=== PATIENT | male | born 1985 | race Caucasian/White ===

== ENCOUNTER → 2019-06-27 | Day surgery (SDC) | payer BC ==
[2019-06-26 12:23] LABS: BASOPHILS % 0.5 % (0.0-1.0); EOSINOPHILS # (AUTO) 0.1 (0.0-0.4); EOSINOPHILS % 1.2 % (0.0-6.0); HEMATOCRIT 41.1 % (38.2-49.6); HEMOGLOBIN 13.8 g/dL (14.0-18.0); LYMPHOCYTES # (AUTO) 2.1 (1.0-3.2); MEAN CORPUSCULAR HEMOGLOBIN 30.6 pg (28-32); MEAN CORPUSCULAR HGB CONC 33.6 g/dL (31-35); MEAN CORPUSCULAR VOLUME 91.1 fL (81-99); MONOCYTES # (AUTO) 0.5 (0.2-0.8); MONOCYTES % 5.6 % (4.4-11.3); NEUTROPHILS # (AUTO) 5.4 (2.1-6.9); NEUTROPHILS % 66.3 % (38.7-80.0); PLATELET COUNT 234 x10e3/uL (140-360); RED BLOOD COUNT 4.51 x10e6/uL (4.3-5.7); RED CELL DISTRIBUTION WIDTH 12.7 % (11.7-14.4)
[2019-06-26 12:34] LABS: PROTHROMBIN TIME 13.7 seconds (11.9-14.5)
[2019-06-26 12:40] LABS: ALANINE AMINOTRANSFERASE 25 IU/L (0-55); ALBUMIN 4.3 g/dL (3.5-5.0); ALBUMIN/GLOBULIN RATIO 1.5 (0.8-2.0); ALKALINE PHOSPHATASE 63 IU/L (40-150); BLOOD UREA NITROGEN 14 mg/dL (7-26); BUN/CREATININE RATIO 11 (6-25); CALCIUM 9.7 mg/dL (8.4-10.2); CARBON DIOXIDE 29 mmol/L (22-29); CHLORIDE 103 mmol/L (98-107); CREATININE, SERUM 1.25 mg/dL (0.72-1.25); EST GLOMERULAR FILTRATION RATE > 60 ML/MIN (60-); GLUCOSE 139 mg/dL (74-118); SODIUM 139 mmol/L (136-145)
[~2019-06-27] VITALS: Ht 175.3 cm; Wt 81.6 kg
[~2019-06-27] MED LIST: ACETAMINOPHEN325 M1 PO; ADVIL200 MG PO; LIDOCAINE 1% W/EPINEPHRINE 20 ML VIAL ONE
[2019-06-27 09:30] VITALS: BP 117/60
--- NOTE | 2019-06-27 09:30 | NUR ---
0930Pt meets DC criteria. Chest assessed for s/s of complication and presence of hematoma. Skin warm, dry, no discolor, and pulses present. Programed ILR verified by Laurel MAYBERRY Synced device at nursing station and prepared for dc. VS WNL. Pt denies pain, sob, or need at this time. Review of discharge paperwork and follow up instructions. verbalized understanding. Pt to wheelchair and transported to front of hospital. Transferred to private vehicle under own strength w/o incident with DC paperwork in hand. - ds/rn ---------
--- NOTE | 2019-08-06 16:52 | Operative Report ---
DATE OF PROCEDURE: 06/27/2019 SURGEON: Catracho Mcbride MD INDICATION FOR PROCEDURE: SVT. PROCEDURES PERFORMED: LINQ ILR implantation. PREPROCEDURE ASSESSMENT: Informed consent was obtained. Risks, benefits, and alternatives to treatment were explained prior to the procedure. PROCEDURE PERFORMED: LINQ ILR implantation. PROCEDURE DETAILS: The patient was brought to the cardiac catheterization holding area in a fasting state. Chest was prepped and draped in a sterile fashion and local anesthesia was achieved for fourth intercostal space using 1% lidocaine with epinephrine. LINQ implantable loop recorder device was inserted in the fourth space without any complication. Incision was closed using Dermabond with overlying dressing. The patient tolerated the procedure well. There were no immediate complications. GRAFTS AND IMPLANTS: LINQ implantable loop recorder. SPECIMEN REMOVED: None. ESTIMATED BLOOD LOSS: Negligible. COMPLICATIONS: None. FINAL RECOMMENDATIONS: Follow up in clinic one week post discharge for wound check. MD ARTIE CondeP/MODL /[id number]
== END | disposition home or self-care (01) ==
LOC: CATH LAB 07:32
PROVIDERS: ATTEND Internal Medicine
DX: I47.1 Supraventricular tachycardia (principal); I20.8 Other forms of angina pectoris; I10 Essential (primary) hypertension; J45.909 Unspecified asthma, uncomplicated; Z01.812 Encounter for preprocedural laboratory examination; Z68.33 Body mass index [BMI] 33.0-33.9, adult
CPT/HCPCS: 33285; 36415; 80053; 85025; 85610; C1764